=== PATIENT | male | born 1975 | race Caucasian/White ===

== ENCOUNTER 2018-12-09 07:56 | Emergency (ER) | payer OTHER ==
[2018-12-09 08:00] VITALS: RESP 18
[2018-12-09] MEDS ORDERED: DEXAMETHASONE SOD PHOSPHATE 10 MG/ML 1 ML VIAL IV STA (08:08)
[2018-12-09] MEDS ORDERED: KETOROLAC 30 MG/ML 1 ML VIAL IVP STA (08:08)
[2018-12-09] MEDS ORDERED: SODIUM CHLORIDE 0.9% 2,000 ML IV ONE (08:08)
--- NOTE | 2018-12-09 08:19 | ED ---
ENT HPI - General Chief complaint: ENT Stated complaint: throat swelling Time Seen by Provider: 12/09/18 08:02 Source: patient, RN notes reviewed Mode of arrival: ambulatory Limitations: no limitations - History of Present Illness Initial comments: 43-year-old male presents emergency Department with chief complaint of sore throat. Patient states started Tuesday has progressively worsened. Patient states she's not tolerating oral intake because is too painful and there is increased swelling. Patient states she's had no prior throat surgeries no surgery of tonsils are denies. Patient states tonsillar swollen states that he can get fluids down but states it's increasingly painful. He did take some Tylenol Motrin given. Patient states that he's had a fever at home current temp 99 8. Patient has no current abdominal pain including nausea vomiting diarrhea constipation no other URI symptoms including cough, nasal congestion, ear pain, neck stiffness. Patient has no history of mono. - Related Data Home Medications Medication Instructions Recorded Confirmed Cpm/PE/Dm/Acetaminophen/Guaifn 2 tab PO DAILY 12/09/18 12/09/18 [Tylenol Cold-Flu Day-Nt Caplet] Previous Rx's Medication Instructions Recorded Amoxicillin 500 mg PO Q8H #30 capsule 12/09/18 Ibuprofen [Motrin] 600 mg PO Q8HR PRN #30 tab 12/09/18 predniSONE 50 mg PO DAILY #3 tab 12/09/18 Allergies Allergy/AdvReac Type Severity Reaction Status Date / Time No Known Allergies Allergy Verified 12/09/18 08:52 Review of Systems ROS Statement: Those systems with pertinent positive or pertinent negative responses have been documented in the HPI. ROS Other: All systems not noted in ROS Statement are negative. Past Medical History Past Medical History: No Reported History History of Any Multi-Drug Resistant Organisms: None Reported Past Surgical History: Orthopedic Surgery Past Psychological History: No Psychological Hx Reported Smoking Status: Current every day smoker Past Alcohol Use History: Occasional Past Drug Use History: None Reported General Exam Limitations: no limitations General appearance: alert, in no apparent distress Head exam: Present: atraumatic, normocephalic, normal inspection Eye exam: Present: normal appearance, PERRL, EOMI. Absent: scleral icterus, conjunctival injection, periorbital swelling ENT exam: Present: mucous membranes moist. Absent: normal exam, normal oropharynx (Grossly enlarged tonsils, near kissing, swallowing secretions well no definite abscess, there are exudates and erythema noted) Neck exam: Present: normal inspection, full ROM, lymphadenopathy. Absent: tenderness, meningismus Respiratory exam: Present: normal lung sounds bilaterally. Absent: respiratory distress, wheezes, rales, rhonchi, stridor Cardiovascular Exam: Present: regular rate, normal rhythm, normal heart sounds. Absent: systolic murmur, diastolic murmur, rubs, gallop, clicks GI/Abdominal exam: Present: soft, normal bowel sounds. Absent: distended, tenderness, guarding, rebound, rigid Neurological exam: Present: alert Skin exam: Present: warm, dry, intact, normal color. Absent: rash Course Vital Signs 12/09/18 07:56 Temperature 99.8 F H Pulse Rate 85 Respiratory 18 Rate Blood Pressure 140/97 O2 Sat by Pulse 97 Oximetry Medical Decision Making - Medical Decision Making 43-year-old male presented from for sore throat, swelling. Patient was on to have diffuse enlargement of his tonsils CT does not reveal abscess does show evidence of tonsillitis. Patient is improved after IV fluids, Toradol steroids. Patient be discharged with antibiotics and steroids for tonsillitis. Patient agrees with discharged return parameters were discussed. - Lab Data Result diagrams: 12/09/18 08:30 12/09/18 08:30 Lab Results 12/09/18 12/09/18 12/09/18 Range/Units 08:30 08:30 08:30 WBC 16.2 H (3.8-10.6) k/uL RBC 5.26 (4.30-5.90) m/uL Hgb 15.1 (13.0-17.5) gm/dL Hct 44.7 (39.0-53.0) % MCV 85.0 (80.0-100.0) fL MCH 28.8 (25.0-35.0) pg MCHC 33.9 (31.0-37.0) g/dL RDW 12.9 (11.5-15.5) % Plt Count 361 (150-450) k/uL Neutrophils % 77 % Lymphocytes % 12 % Monocytes % 9 % Eosinophils % 1 % Basophils % 0 % Neutrophils # 12.4 H (1.3-7.7) k/uL Lymphocytes # 1.9 (1.0-4.8) k/uL Monocytes # 1.4 H (0-1.0) k/uL Eosinophils # 0.1 (0-0.7) k/uL Basophils # 0.1 (0-0.2) k/uL Sodium 138 (137-145) mmol/L Potassium 4.9 (3.5-5.1) mmol/L Chloride 100 (98-107) mmol/L Carbon Dioxide 25 (22-30) mmol/L Anion Gap 13 mmol/L BUN 17 (9-20) mg/dL Creatinine 0.59 L (0.66-1.25) mg/dL Est GFR (CKD-EPI)AfAm >90 (>60 ml/min/1.73 sqM) Est GFR (CKD-EPI)NonAf >90 (>60 ml/min/1.73 sqM) Glucose 130 H (74-99) mg/dL Calcium 10.3 H (8.4-10.2) mg/dL Total Bilirubin 0.9 (0.2-1.3) mg/dL AST 16 L (17-59) U/L ALT 32 (21-72) U/L Alkaline Phosphatase 60 (38-126) U/L Total Protein 8.1 (6.3-8.2) g/dL Albumin 4.6 (3.5-5.0) g/dL Heterophile Antibody Negative (Negative) Group A Strep Rapid (Negative) 12/09/18 Range/Units 08:30 WBC (3.8-10.6) k/uL RBC (4.30-5.90) m/uL Hgb (13.0-17.5) gm/dL Hct (39.0-53.0) % MCV (80.0-100.0) fL MCH (25.0-35.0) pg MCHC (31.0-37.0) g/dL RDW (11.5-15.5) % Plt Count (150-450) k/uL Neutrophils % % Lymphocytes % % Monocytes % % Eosinophils % % Basophils % % Neutrophils # (1.3-7.7) k/uL Lymphocytes # (1.0-4.8) k/uL Monocytes # (0-1.0) k/uL Eosinophils # (0-0.7) k/uL Basophils # (0-0.2) k/uL Sodium (137-145) mmol/L Potassium (3.5-5.1) mmol/L Chloride (98-107) mmol/L Carbon Dioxide (22-30) mmol/L Anion Gap mmol/L BUN (9-20) mg/dL Creatinine (0.66-1.25) mg/dL Est GFR (CKD-EPI)AfAm (>60 ml/min/1.73 sqM) Est GFR (CKD-EPI)NonAf (>60 ml/min/1.73 sqM) Glucose (74-99) mg/dL Calcium (8.4-10.2) mg/dL Total Bilirubin (0.2-1.3) mg/dL AST (17-59) U/L ALT (21-72) U/L Alkaline Phosphatase (38-126) U/L Total Protein (6.3-8.2) g/dL Albumin (3.5-5.0) g/dL Heterophile Antibody (Negative) Group A Strep Rapid Negative (Negative) Disposition Clinical Impression: Acute tonsillitis Disposition: HOME SELF-CARE Condition: Stable Instructions (If sedation given, give patient instructions): Tonsillitis (ED) Additional Instructions: Please return to the Emergency Department if symptoms worsen or any other concerns. Prescriptions: Amoxicillin 500 mg PO Q8H #30 capsule Ibuprofen [Motrin] 600 mg PO Q8HR PRN #30 tab PRN Reason: Pain predniSONE 50 mg PO DAILY #3 tab Is patient prescribed a controlled substance at d/c from ED?: No Referrals: None,Stated [Primary Care Provider] - 1-2 days Gabe Garcia MD [STAFF PHYSICIAN] - 1-2 days Time of Disposition: 09:33
[2018-12-09 08:42] LABS: Basophils # (A) 0.1 k/uL (0-0.2); Basophils % (A) 0 %; Eosinophils # (A) 0.1 k/uL (0-0.7); Eosinophils % (A) 1 %; HCT 44.7 % (39.0-53.0); HGB 15.1 gm/dL (13.0-17.5); Lymphocytes # (A) 1.9 k/uL (1.0-4.8); Lymphocytes % (A) 12 %; MCH 28.8 pg (25.0-35.0); MCHC 33.9 g/dL (31.0-37.0); Mean Platelet Volume 6.5; Monocytes # (A) 1.4 k/uL (0-1.0); Monocytes % (A) 9 %; Neutrophils # (A) 12.4 k/uL (1.3-7.7); Neutrophils % (A) 77 %; Platelet Count 361 k/uL (150-450); RBC 5.26 m/uL (4.30-5.90); RDW 12.9 % (11.5-15.5); WBC 16.2 k/uL (3.8-10.6)
[2018-12-09 08:53] LABS: ALT 32 U/L (21-72); AST 16 U/L (17-59); Albumin 4.6 g/dL (3.5-5.0); Alkaline Phosphatase 60 U/L (38-126); Anion Gap 13 mmol/L; Blood Urea Nitrogen 17 mg/dL (9-20); Calcium 10.3 mg/dL (8.4-10.2); Carbon Dioxide 25 mmol/L (22-30); Chloride 100 mmol/L (98-107); Glucose 130 mg/dL (74-99); Potassium 4.9 mmol/L (3.5-5.1); Sodium 138 mmol/L (137-145); Total Bilirubin 0.9 mg/dL (0.2-1.3); Total Protein 8.1 g/dL (6.3-8.2)
[2018-12-09] MEDS ORDERED: cefTRIAXone IN SWFI 1,000 MG/10 ML SYRINGE IVP STA (08:57)
--- NOTE | 2018-12-09 09:10 | CT ---
EXAMINATION TYPE: CT soft tissue neck w con DATE OF EXAM: 12/09/2018 COMPARISON: None HISTORY: 43-year-old male Pain from tonsil abscess TECHNIQUE: Contiguous axial scanning of the soft tissues of the neck performed with IV Contrast, reno ent injected with 100 mL of Isovue 300. Coronal/sagittal reconstructions performed. CT DLP: 222 mGycm Automated exposure control for dose reduction was used. FINDINGS: Visualized intracranial structures, orbits and globes, mastoid air cells appear clear. 2.5 cm mucosal retention cyst along the floor of the right maxillary sinus. There is soft tissue fullness of the adenoids within the posterior nasopharynx. Bilateral enlargement of the tubal and palatine tonsils narrowing at the junction of the nasopharynge al and oropharyngeal airway down to 1 cm. There is some patchy hypodensity in the left tonsillar region, axial image 16 without any well-define d fluid collection. Some asymmetric soft tissue fullness is present along the left lateral mucosal space of the hypophary nx, refer to axial images 51 and 49, probably reactive thickening. Mild asymmetric subcutaneous fat stranding along the left submandibular region and left upper neck wi th left upper cervical lymphadenopathy measuring up to 1.7 cm short axis. Lymph nodes in the right up per neck measures 1.6 cm short axis. Parotid glands are mildly atrophic. Semitubular and thyroid glan ds appear satisfactory. Epiglottis and prevertebral soft tissues appear normal. Tracheal column and visualized upper lungs are clear. Moderate degenerative disc disease C5-C6. Reversal of the normal cervical lordosis. IMPRESSION: 1. DIFFUSE LYMPHOID HYPERTROPHY OF THE ADENOIDS AND BILATERAL TUBAL AND PALATINE TONSILS. CORRELATE F OR TONSILLITIS. THE TONSILLAR ENLARGEMENT NARROWS THE AIRWAY TO 1 CM ALONG THE JUNCTION OF THE NASOPH ARYNX AND OROPHARYNX. NO AIRWAY COMPROMISE. 2. SOME PATCHY HYPODENSITY IN THE LEFT PERITONSILLAR REGION SUGGESTS AN EFFUSION RELATING TO CELLULIT IS. NO DISCRETE ABSCESS IS IDENTIFIED AT THIS TIME. 3. UPPER CERVICAL LYMPHADENOPATHY MEASURING UP TO 1.7 CM LIKELY REACTIVE. THESE CAN BE FOLLOWED CLINI EM[facility] TO ENSURE RESOLUTION FOLLOWING SUCCESSFUL TREATMENT. 4. SOME ASYMMETRIC THICKENING ALONG THE MUCOSAL SPACE OF THE LEFT HYPOPHARYNX LIKELY SECONDARY TO CON TIGUOUS INFLAMMATION.
[2018-12-09 10:51] VITALS: BP 112/67; PULSE 80; TEMP 98.8
== END 2018-12-09 10:13 | disposition home or self-care (01) ==
LOC: EC 07:56
DX: J03.90 Acute tonsillitis, unspecified (principal); F17.200 Nicotine dependence, unspecified, uncomplicated; Z79.899 Other long term (current) drug therapy
CPT/HCPCS: 36415; 80053; 85025; 86308; 87081; 87430; 70491; 99284; 96374; 96375 ×2; 96361; J1100; J0696; J1885; Q9967

== ENCOUNTER → 2022-12-23 | Outpatient (CLI) | payer OTHER ==
--- NOTE | 2022-12-23 18:50 | CT ---
EXAMINATION TYPE: CT ankle RT wo con CT DLP: 488.2 mGycm, Automated exposure control for dose reduction was used. DATE OF EXAM: 12/23/2022 6:39 PM COMPARISON: None CLINICAL INDICATION:Male, 47 years old with history of S82.841A, fracture TECHNIQUE: Axial images were obtained of the right ankle . Additional coronal and sagittal reformatt ed images and soft tissue and bone window were obtained for review. 3-D reconstruction was created on a separate workstation. Contrast used: None Oral contrast used: None FINDINGS: There is an acute fracture of the distal diaphysis of the fibula the posterior tibial plafo nd and the medial malleolus. There is mild comminution and mild displacement of the posterior tibial plafond and fracture of 2 mm. The fibular fractures also mildly comminuted with multiple tiny fragmen ts and a large butterfly fragment. Multiple calcified bodies in the deltoid ligament suggests prior r emote injury. No additional fractures are visualized there is soft tissue swelling. IMPRESSION: Trimalleolar fracture with mild displacement up combination and intra-articular extension.
== END | disposition home or self-care (01) ==
LOC: RADCTMAIN 18:15
PROVIDERS: ATTEND Orthopaedic Surgery
DX: S82.841A Displaced bimalleolar fracture of right lower leg, initial encounter for closed fracture (principal); S82.851A Displaced trimalleolar fracture of right lower leg, initial encounter for closed fracture; M25.571 Pain in right ankle and joints of right foot; X58.XXXA Exposure to other specified factors, initial encounter